=== PATIENT | female | born 1990 | race Caucasian/White ===

== ENCOUNTER 2018-10-03 13:45 | Emergency (ER) | payer OTHER, SELFPAY ==
[2018-10-03 13:47] VITALS: BP 109/60; PULSE 80; RESP 18; TEMP 36.8; O2SAT 98; BMI 22.6
--- NOTE | 2018-10-03 14:33 | ED.VISSUMM ---
- ER Visit Summary Date of Service: 10/03/18 Chief Complaint: Environmental exposure History of Present Illness: The patient is a 27 F with a needle stick to her hand prior to arrival. She cannot even tell where it is anymore, it bled for a little bit. This was a insulin needle and she does not know who was it was. On the exam the palm is clean dry and intact without evidence of a puncture wound Emergency Department Course and Treatment: At this time I believe the risk is quite low and patient does not need prophylaxis. We will draw her HIV hepatitis and she is to follow-up with counts include [facility] beds at the [facility] Discharge stable condition Impression: [Environmental exposure] This note was generated with [employer] dictation software. It may contain incorrect words, spelling, and punctuation that were not noted in review of the chart prior to signing ED Disposition - Plan for ED Patient: Disposition: Home or Assisted Living [facility]errals: [facility]YSICIANS] - 3-5 Days Additional Instructions: Follow-up with occupational health
[2018-10-03 16:34] LABS: HIV - WCH Non-Reactive (Nonreactive)
[2018-10-05 13:34] LABS: HEPATITIS B SURFACE AG Negative (Negative); Hep B Surface Antibodies EMP Reactive (.); Hep C Antibodies <0.1 s/co ratio (0.0-0.9)
== END 2018-10-03 16:00 | disposition home or self-care (01) ==
PROVIDERS: Emergency Provider Emergency Medicine; Family Provider Internal Medicine; PCP Internal Medicine
DX: S61.439A Puncture wound without foreign body of unspecified hand, initial encounter (principal); W46.1XXA Contact with contaminated hypodermic needle, initial encounter; Y93.9 Activity, unspecified; Y92.89 Other specified places as the place of occurrence of the external cause; Y99.0 Civilian activity done for income or pay
CPT/HCPCS: 86703; 86803; 87340; 99282

== ENCOUNTER 2019-05-16 12:16 | Emergency (ER) | payer OTHER, SELFPAY ==
[2019-05-16 12:17] VITALS: BP 132/94; PULSE 89; RESP 16; TEMP 36.9; O2SAT 98; BMI 21.3
--- NOTE | 2019-05-16 12:30 | EKG12_ITS ---
Test Reason : CP Blood Pressure : / mmHG Vent. Rate : 093 BPM Atrial Rate : 093 BPM P-R Int : 144 ms QRS Dur : 082 ms QT Int : 356 ms P-R-T Axes : 069 050 059 degrees QTc Int : 442 ms Normal sinus rhythm with sinus arrhythmia Normal ECG Confirmed by KARLENE OLIVEROS, ERON ([id number]), graphics editor ARIAN RUVALCABA ([id number] on 05/20/2019 10:32:58 AM Referred By: MILY/PETER Confirmed By:ERON SOLER MD
[2019-05-16 12:39] VITALS: BP 130/85; PULSE 85; RESP 16; O2SAT 98
--- NOTE | 2019-05-16 12:41 | ED.DCSUM_ITS ---
History of Present Illness Chief Complaint: Chest Other Detail of Chief Complaint: Left anterior chest pain after coughing evening Informant: Patient Onset: Days - Several days with onset May 12 Context: Sudden Onset Timing: Intermittent - Written initially now constant Quality: Pain Location: Left anterior chest lateral sternum Current Severity: Mild Maximum Severity: Severe Worsened by: Touch, movement, cough Relieved by: Presently nothing Associated Symptoms: URI symptoms Narrative: Patient is a 28-year-old woman who was sent from the urgent care left-sided chest pain. Patient reports cough starting . She denies fever chills. She states her children are ill with viral symptoms. She denies history of PE or DVT. She denies leg pain, swelling discoloration. She is on no hormonal therapy. She has no risk factors for PE or DVT. Prior similar symptoms: No Recent Illness/Hospitalization: No - Past Medical History (1) No significant past medical history Status: Acute Past Medical History - Allergies and Home Meds Allergies/Adverse Reactions: Allergies Sulfa (Sulfonamide Antibiotics) Allergy (Verified 05/16/19 12:19) [facility] Physician: Suzie Somers MD [Primary Care Provider] - Prior records reviewed: No Past Medical History: None Surgical History: - - Status post bilateral tubal ligation Lives: With Family Smoking Status: Former smoker Alcohol: Rare Drugs: None Review of Systems General: Denies: Chills, Fever, Sweats Eyes: Denies: Visual changes - bilaterally, Diplopia ENT: Denies: Rhinorrhea, Sore throat Cardiovascular: Reports: Chest pain Respiratory: Reports: Cough. Denies: Dyspnea, Sputum, Dyspnea on exertion, Orthopnea, Paroxysmal nocturnal dyspnea Gastrointestinal: Denies: Abdominal pain, Nausea, Vomiting, Diarrhea, Melena, Hematochezia Genitourinary: Denies: Dysuria, Hematuria, Frequency Musculoskeletal: Denies: Myalgias, Arthralgias, Neck pain, Back pain, Swelling, Extremity Pain Skin: Denies: Rash, Wounds Neurological: Denies: Headache, Weakness, Numbness Hematologic: Denies: Easy bruising, Easy bleeding Physical Exam Vital Signs/Narrative: Vital Signs Temp Pulse Resp BP Pulse Ox 05/16/19 12:17 98.5 F 89 16 132/94 H 98 General: Well nourished, Well developed, No Acute Distress Head: Normocephalic, Atraumatic Eyes: Perrl, EOMI ENT: Moist mucous membranes, No rhinorrhea Neck: Supple, Nontender Cardiovascular: Regular rate, Regular rhythm, No murmurs Respiratory: No distress, CTA bilaterally, Chest tenderness - Pain to palpation which reproduces her pain fourth fifth intercostal space left side Abdomen: Soft, Nontender, Nondistended, Normal bowel sounds Back: Nontender, Normal Inspection Extremities: Nontender, No edema, - - There is no asymmetry, swelling, discoloration, leg vein distention, palpable cords or tenderness along the distribution of the deep venous system. Skin: Normal color, No rash Neurological: Alert, Oriented x3, Cranial nerves II-XII grossly intact, Normal Strength, Normal Sensation Psychological: Normal affect, Normal Mood, Tearful Diagnostic/Tx/Re-eval - EKG Initial EKG Interpretation: Sinus Rhythm - Sinus rhythm with a ventricular rate of 93. [place] interval is 146 ms. QS duration 82 ms. QT duration 3 and 56 ms. [place] is normal. The EKG is normal. - Medical Decision Making Recent cough, children that are ill with viral illness and reproducible chest pain with no risk factors for PE or DVT patient was treated with NSAIDs since there is no contraindication for costochondritis. There is nothing based on history or physical of concern for pneumonia. Patient has reproduced pain and reason why d-dimer was not obtained. ED Disposition - Plan for ED Patient: Disposition: Home or Assisted Living Diagnosis: Costochondritis, acute Instructions: CHEST WALL PAIN, Costochondritis Prescriptions: Naproxen [Naprosyn] 500 mg PO BID #14 tab Prescription Printed Referrals: Suzie Somers MD [Primary Care Provider] - 1 Week if not improving
[2019-05-16 12:51] VITALS: BP 128/80; PULSE 80; RESP 14; O2SAT 98
--- NOTE | 2019-05-16 12:57 | ED.RN ---
PER REGISTRATION, PATIENT HAS A DIFFERENT NAME, CHANGED BY REGISTRATION AND CONFIRMED BY HER DRIVERS LICENSE
== END 2019-05-16 12:59 | disposition home or self-care (01) ==
LOC: ED 12:58
PROVIDERS: Emergency Provider Emergency Medicine; Family Provider Internal Medicine; PCP Internal Medicine
DX: M94.0 Chondrocostal junction syndrome [Tietze] (principal); Z87.891 Personal history of nicotine dependence
CPT/HCPCS: 93005; 99283

== ENCOUNTER → 2025-03-31 | Outpatient (CLI) | payer OTHER, SELFPAY ==
[2025-03-31 12:07] LABS: AST(SGOT) 16 U/L (<=31); Alanine Aminotransfer ALT/SGPT 13 U/L (<=34); Albumin, Serum 4.1 g/dL (3.5-5.0); Alkaline Phosphatase 52 U/L (35-104); Bilirubin, Direct 0.12 mg/dL (0.00-0.30); Globulin 2.7 g/dL (2.2-4.2)
== END | disposition home or self-care (01) ==
PROVIDERS: PCP Pediatrics; Referring Provider Student in an Organized Health Care Education/Training Program; Visit Provider Student in an Organized Health Care Education/Training Program
DX: B35.1 Tinea unguium (principal)
CPT/HCPCS: 36415; 80076